=== PATIENT | male | born 1950 | race Caucasian/White ===

== ENCOUNTER → 2024-12-29 09:35 | Outpatient (BNVA) | payer MEDICARE, SELFPAY | PROVIDERS: Family Provider Family Medicine; PCP Family Medicine; Visit Provider Family Medicine | DX: Z00.00 Encounter for general adult medical examination without abnormal findings (principal); R35.1 Nocturia; R73.9 Hyperglycemia, unspecified; Z13.6 Encounter for screening for cardiovascular disorders | CPT/HCPCS: 80053; 80061; 83036; 84153; 85025 ==